=== PATIENT | female | born 1960 | race Caucasian/White ===

== ENCOUNTER → 2017-03-31 14:12 | Outpatient (CLI) | payer OTHER ==
[~2017-03-31 14:12] MED LIST: FERROUS SULFAT325 MG PO; LIPITOR20 MG PO; NEXIUM40 MG PO; OMEPRAZOLE20 M1 PO; PRILOSEC20 MG PO; ZOLOFT100 MG PO
== END | disposition home or self-care (01) ==
LOC: D.MAMMO 10:30
DX: R92.8 Other abnormal and inconclusive findings on diagnostic imaging of breast (principal)

== ENCOUNTER → 2017-04-14 13:02 | Outpatient (CLI) | payer OTHER | END | disposition home or self-care (01) | LOC: D.US 13:02 | DX: N60.02 Solitary cyst of left breast (principal) ==